=== PATIENT | female | born 1980 ===

== ENCOUNTER 2020-04-29 15:52 | Outpatient (REF) | payer OTHER, SELFPAY | END 2020-04-29 15:53 | disposition home or self-care (01) | LOC: HO.LAB 15:52 | PROVIDERS: Visit Provider Internal Medicine | DX: Z20.822 Contact with and (suspected) exposure to COVID-19 (principal) | CPT/HCPCS: 36415; C9803; U0003; U0005 ==

== ENCOUNTER 2022-09-24 10:58 | Outpatient (AMB) | payer OTHER, SELFPAY ==
--- NOTE | 2022-09-24 10:59 | MHC.OFFVIS ---
Intake Vital Signs 09/24/22 11:03 Height 5 ft 6 in Weight 158 lb BMI 25.5 BP 154/88 H Blood Pressure Location Rt brachial Position Sitting Intake Visit Reasons: New patient Vaginal bleeding Intake Note: Pt c/o: postcordial bleeding new partner 2022 [employer] Blower Required: No Accompanied by: Self / Same As Patient Allergies Penicillins [PENICILLINS] Allergy (Intermediate, Verified 09/24/22 11:05) HIVES tramadol [TRAMADOL] Allergy (Intermediate, Unverified 09/24/22 11:05) ITCHING penicillin V Allergy (Unknown, Verified 09/24/22 11:05) Hives oxycodone [From PERCOCET] Adverse Reaction (Severe, Unverified 09/24/22 11:05) SEVERE NAUSEA+VOMITING Medication List - Last Reconciled 09/24/22 by Radha Reyna CNM No Known Home Meds Is last menstrual period known: Yes Last menstrual period: 09/08/22 HPI New patient Vaginal bleeding HPI Details Patient is scheduled today as a new patient for postcoital bleeding. 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 She has a new partner since beginning of the year and twice she has had post coital bleeding they use condoms however she would like to be checked for STIs just to be sure she does recall having an abnormal Pap smear a couple of times per perhaps in 2015 but repeat Paps were within normal limits. She did not need procedures or colposcopies to her memory. She had all vaginal births and no problems with them and she had her tubes tied by Dr. Jara after the of her last daughter. 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 The bleeding concerned her because it was kind of significant and sudden but it stopped is very soon after the last time was last week on Tuesday her periods are regular and they last maybe 3-4 days and the last period came on September 08 and she has no problems with her periods. She has had a history of herpes but only 1 outbreak in her life and it was when she was and it was discovered during the a visit. It turns out her partner had it and shared it but she never had an outbreak after that. [facility] Surgical History (Updated 04/23/20 @ 08:23 by ALEXANDR Nam) History of extraction of renal calculus History of tubal ligation Family History (Updated 04/23/20 @ 08:44 by ALEXANDR Nam) Father Hypertension Diabetes Mother Prediabetes Sister Cirrhosis of liver Maternal Grandmother Diabetes Arthritis Brother No problems noted. Son In good health Daughter In good health Female Reproductive History Menstrual Date of last menstrual period: 09/08/22 Total pregnancies: 5 Number of Living Children: 3 Ab spontaneous: 2 Physical Exam Vital Signs: Last Vital Signs BP 154/88 H 09/24/22 11:03 BMI result Body Mass Index 25.5 Other: Evidence of some old blood with mucus in vagina but no fresh blood seen and her cervix is not particularly friable very tiny scant amount of blood elicited with Cytobrush in internal os which is slightly gaping consistent with multiparity. No evidence of cervical polyp visible and no abnormal discharge noted at all cervix is otherwise clear and mucosa healthy and mucus clear except for the old blood. Cervix is parous mobile nontender uterus small midposition nontender good tone with Kegel adnexa nontender External Female Exam: normal external appearance Speculum Exam - Vagina: normal appearance of the vagina and normal vaginal discharge Speculum Exam - Cervix: normal appearance of the cervix Bimanual exam- vagina & uterus: normal bimanual exam, uterine size normal, consistency normal, uterine mobility normal, uterine shape normal and non-tender Bimanual Exam- Adnexa, other: normal adnexae, no masses and No adnexal tenderness Assessment & Plan Assessment & Plan (1) Postcoital bleeding: Code(s): N93.0 - Postcoital and contact bleeding (2) Screen for sexually transmitted diseases: Code(s): Z11.3 - Encounter for screening for infections with a predominantly sexual mode of transmission Plan discussed screening for STDs which she is happy to do and testing was done during this exam I also did her Pap smear today as it has been a few years since her last 1 and she did recall some abnormals though none significant enough to require major intervention as far she can recall. I am also ordering a pelvic ultrasound to assess for any anomalies that could explain the post coital bleeding in particular I am curious whether not there is a cervical polyp that could have become disrupted during intercourse. She has a scheduled field automobile adjuster annual exam in October so we will review the results of all at that visit. Orders: Orders Bacterial Vaginosis Panel Today N93.0 - Postcoital and contact bleeding, Z20.2 - Contact with and (suspected) exposure to infections with a predominantly sexual mode of transmission CT NG by PCR Today N93.0 - Postcoital and contact bleeding, Z20.2 - Contact with and (suspected) exposure to infections with a predominantly sexual mode of transmission US pelvic and transvaginal Today N93.0 - Postcoital and contact bleeding Hepatitis B Surface Antigen Today N93.0 - Postcoital and contact bleeding Hepatitis C Antibody Today N93.0 - Postcoital and contact bleeding HIV Ab/Ag Today N93.0 - Postcoital and contact bleeding Syphilis Screen Today N93.0 - Postcoital and contact bleeding Pap Smear Today Z01.419 - Encounter for gynecological examination (general) (routine) without abnormal findings Coding Level of Care Code New Pt Level 3 (86619) Diagnoses Postcoital bleeding N93.0 Screen for sexually transmitted diseases Z11.3
[2022-09-24 11:03] VITALS: BP 154/88; BMI 25.5
== END 2022-09-24 12:17 | disposition home or self-care (01) ==
LOC: HO.HWS 10:58
PROVIDERS: Visit Provider Advanced Practice Midwife
DX: N93.0 Postcoital and contact bleeding (principal); Z11.3 Encounter for screening for infections with a predominantly sexual mode of transmission
CPT/HCPCS: 99203

== ENCOUNTER 2022-09-24 10:58 | Outpatient (REF) | payer OTHER, SELFPAY ==
[2022-09-25 04:25] LABS: CT PCR NOT DETECTED (Not Detect.); NG PCR NOT DETECTED (Not Detect.)
[2022-09-25 12:50] LABS: BV Int Neg Control Negative (Negative); BV Int Pos Control Positive (Positive)
[2022-10-02 03:14] LABS: HPV mRNA E6/E7 rflx Not Detected (Not Detected)
== END 2022-09-24 10:59 | disposition home or self-care (01) ==
LOC: HO.LNP 10:58
PROVIDERS: Visit Provider Advanced Practice Midwife
DX: Z01.419 Encounter for gynecological examination (general) (routine) without abnormal findings (principal); N93.0 Postcoital and contact bleeding; Z20.2 Contact with and (suspected) exposure to infections with a predominantly sexual mode of transmission
CPT/HCPCS: 0353U; 87480; 87510; 87624; 87660; 88142; 99202

== ENCOUNTER 2022-11-05 09:22 | Outpatient (AMB) | payer OTHER, SELFPAY ==
[2022-11-05 09:31] VITALS: BP 118/74; BMI 28.6
--- NOTE | 2022-11-05 09:31 | A.OFFVIS_ITS ---
Intake Vital Signs 11/05/22 09:31 Height 5 ft 6 in Weight 177 lb BMI 28.6 BP 118/74 Intake Visit Reasons: Annual/follow up Intake Note: no concerns The patient agreed to use of a medical education coordinator during this encounter. Scribed for LEVI Martins by Caro Philippe medical education coordinator, on 11/05/2022 at 9:45 am EST Munitions Worker Required: No Information Interpreted: non-clinical & clinical Beater Engineer: Beater Engineer Present (Linette Hudson ALEXANDR) Accompanied by: Self / Same As Patient Allergies Penicillins [PENICILLINS] Allergy (Intermediate, Verified 11/05/22 09:32) HIVES tramadol [TRAMADOL] Allergy (Intermediate, Unverified 11/05/22 09:32) ITCHING penicillin V Allergy (Unknown, Verified 11/05/22 09:32) Hives oxycodone [From PERCOCET] Adverse Reaction (Severe, Unverified 11/05/22 09:32) SEVERE NAUSEA+VOMITING Is last menstrual period known: Yes Last menstrual period: 10/06/22 HPI HPI Comments History of Present Illness Details She is a premenopausal woman presenting for annual exam. She is concerned about her weight gain. She attempts to eat healthy and stay active. Currently sexually active. She uses condoms for STD prevention. Hx of BTL for BC. Regular monthly periods. Hx of anemia in , does not have a PCP currently for routine blood work. Hx of post coital bleeding last month, resolved. Has not done US yet due to work schedule. Denies vaginal itching and irritation. STD screening offered; she declines, just done last month. Denies family hx of breast, colon and ovarian cancer. Last pap smear 2022. Not UTD on mammogram. [facility] Surgical History History of extraction of renal calculus History of tubal ligation Family History Father Hypertension Diabetes Mother Prediabetes Sister Cirrhosis of liver Maternal Grandmother Diabetes Arthritis Brother No problems noted. Son In good health Daughter In good health Paternal Aunt Breast cancer Social History Household Members: Children Housing: House Alcohol intake: current Alcohol intake frequency: holidays/special occasions only Patient Tobacco Use Status: Never used Tobacco Current occupational status: employed Current occupation: [employer] Sexual orientation: Straight/Heterosexual Gender identity: Female Female Reproductive History Menstrual Date of last menstrual period: 10/06/22 control method: permanent sterilization Total pregnancies: 5 Full term: 3 Number of Living Children: 3 Ab spontaneous: 2 Date of last pap smear: 09/27/22 Review of Systems Const All systems reviewed & are unremarkable except as noted in HPI and below Reports weight gain Physical Exam Vital Signs: Last Vital Signs BP 118/74 11/05/22 09:31 BMI result Body Mass Index 28.6 Const General: cooperative, healthy appearing, no acute distress, well developed and alert Orientation/consciousness: patient oriented x3 HEENT Head: Yes normal to inspection Eyes General: appearance normal, both eyes and all related structures Neck Neck: Yes normal visual inspection Thyroid: Thyroid normal Chest Chest palpation & inspection: normal inspection of the chest Breast/axilla inspection: normal inspection of the breasts (no puckering, dimpling, peau de orange, retraction, discharge, masses) Breast/axilla palpation: normal palpation of the breasts Resp Effort & Inspection: normal respiratory effort GI Inspection: Yes normal to inspection Palpation (GI): Soft to palpation Rectal Exam - Female: deferred General: Yes bladder normal to palpation External Female Exam: normal external appearance and normal appearance of the urethra Speculum Exam - Vagina: normal appearance of the vagina, normal palpation and normal vaginal discharge Speculum Exam - Cervix: normal appearance of the cervix and normal palpation Bimanual exam- vagina & uterus: normal bimanual exam, normal palpation, uterine size normal (retroverted), bladder normal to palpation and normal palpation Bimanual Exam- Adnexa, other: normal adnexae and no masses Skin General skin exam: no rashes or lesions noted Neuro General: patient oriented x3 Cognition (Neuro): normal cognition Extrem General: Yes normal to inspection Psych Attitude: cooperative Thought process: Normal thought process present Assessment & Plan Assessment & Plan (1) Encounter for well woman exam: Code(s): Z01.419 - Encounter for gynecological examination (general) (routine) without abnormal findings Plan: Discussed: Current recommendations for pap smears per ASCCP guidelines. Breast awareness and periodic self breast exams. Encouraged yearly mammograms. Maintaining a healthy lifestyle including a well balanced diet, recommended Mediterrenean diet and routine exercise. Recommended completing pelvic US. Encouraged condom use for STD prevention. Encouraged patient to sign up for patient portal. Recommended finding PCP. All of her questions and concerns were addressed to the best of my ability. RTO in one year for AG. (2) Weight gain: Code(s): R63.5 - Abnormal weight gain Plan: Labs ordered. RTO for test results (3) History of anemia: Code(s): Z86.2 - Personal history of diseases of the blood and blood-forming organs and certain disorders involving the immune mechanism Orders: Orders Thyroid Stimulating Hormone Today R63.5 - Abnormal weight gain Complete Blood Count no Diff Today Z86.2 - Personal history of diseases of the blood and blood-forming organs and certain disorders involving the immune mechanism Coding Level of Care Code Est Pt Prev Care 40-64y(60848) Diagnoses Encounter for well woman exam Z01.419 Weight gain R63.5 History of anemia Z86.2
== END 2022-11-05 10:05 | disposition home or self-care (01) ==
PROVIDERS: Visit Provider Advanced Practice Midwife
DX: Z01.419 Encounter for gynecological examination (general) (routine) without abnormal findings (principal); R63.5 Abnormal weight gain; Z86.2 Personal history of diseases of the blood and blood-forming organs and certain disorders involving the immune mechanism
CPT/HCPCS: 99396

== ENCOUNTER → 2022-11-05 09:22 | Outpatient (BNVA) | payer OTHER, SELFPAY | PROVIDERS: Visit Provider Advanced Practice Midwife ==

== ENCOUNTER 2022-12-16 14:54 | Outpatient (REF) | payer OTHER, SELFPAY ==
[2022-12-17 14:11] LABS: BV Int Neg Control Negative (Negative); BV Int Pos Control Positive (Positive)
[2022-12-17 16:41] LABS: CT PCR NOT DETECTED (Not Detect.); NG PCR NOT DETECTED (Not Detect.)
== END 2022-12-16 14:55 | disposition home or self-care (01) ==
LOC: HO.LNP 14:54
PROVIDERS: Visit Provider Advanced Practice Midwife
DX: Z20.2 Contact with and (suspected) exposure to infections with a predominantly sexual mode of transmission (principal)
CPT/HCPCS: 0353U; 87480; 87510; 87660; 99212

== ENCOUNTER 2022-12-16 14:54 | Outpatient (AMB) | payer OTHER, SELFPAY ==
--- NOTE | 2022-12-16 14:55 | MHC.OFFVIS ---
Intake Vital Signs 12/16/22 14:56 Height 5 ft 6 in Weight 174 lb BMI 28.1 BP 120/80 Intake Visit Reasons: STD check Intake Note: Would like full STD check Adult Caregiver Required: No Information Interpreted: non-clinical & clinical Induction Coordination Engineer: Induction Coordination Engineer Present (Leslie) Allergies Penicillins [PENICILLINS] Allergy (Intermediate, Verified 12/16/22 14:59) HIVES tramadol [TRAMADOL] Allergy (Intermediate, Verified 12/16/22 14:59) ITCHING penicillin V Allergy (Unknown, Verified 12/16/22 14:59) Hives oxycodone [From PERCOCET] Adverse Reaction (Severe, Verified 12/16/22 14:59) SEVERE NAUSEA+VOMITING Medication List - Last Reconciled 12/16/22 by Radha Reyna CNM No Known Home Meds Is last menstrual period known: Yes Last menstrual period: 12/07/22 Post menopausal: No HPI STD check HPI Details Patient is here to get an STD check she has been using condoms as well as having her tubes tied but a while back a condom broken it has been making her nervous ever since so she wants to get checked for everything she had had orders placed for STI blood work in September but she never got to go for them she also had spoken to the other CNM about getting her thyroid and blood count checked and she has not gotten those levels done yet either her children are 21 to age 5. States her last menstrual period started on December 07 and it was normal there shorter than they used to be ever since having her last child. Her previous menstrual period came on November 06. [facility] Surgical History History of extraction of renal calculus History of tubal ligation Family History Father Hypertension Diabetes Mother Prediabetes Sister Cirrhosis of liver Maternal Grandmother Diabetes Arthritis Brother No problems noted. Son In good health Daughter In good health Paternal Aunt Breast cancer Social History Household Members: Children Housing: House Alcohol intake: current Alcohol intake frequency: holidays/special occasions only Patient Tobacco Use Status: Never used Tobacco Current occupational status: employed Current occupation: [employer] Sexual orientation: Straight/Heterosexual Gender identity: Female Female Reproductive History Menstrual Age of Menarche: 11 Duration of menses: 3-5 days Date of last menstrual period: 12/07/22 control method: other (tubal ligation) Total pregnancies: 5 Full term: 3 Number of Living Children: 3 Ab spontaneous: 2 Date of last pap smear: 09/27/22 (negative) History of abnormal pap smear: Yes Physical Exam Vital Signs: Last Vital Signs BP 120/80 12/16/22 14:56 BMI result Body Mass Index 28.1 Other: Speculum exam within normal limits vagina is pink and moist cervix does have a somewhat spinbarkight quality to it multiparous cervix. External Female Exam: normal external appearance and normal appearance of the urethra Speculum Exam - Vagina: normal appearance of the vagina and normal vaginal discharge Speculum Exam - Cervix: normal appearance of the cervix and Cervical os closed Results Reviewed Results Reviewed: Pap was normal Assessment & Plan Assessment & Plan (1) Screen for sexually transmitted diseases: Code(s): Z11.3 - Encounter for screening for infections with a predominantly sexual mode of transmission Plan Testing done for gonorrhea chlamydia trichomoniasis Gardnerella and Ewa. She would like to get the blood work done the orders are still active since September so she can go get those done today. Additionally previous orders are still in there she had been having some discomfort when she was having sex but that stopped so both ERICKA is a myself and Janis had ordered pelvic ultrasounds for her but she says the pain has gone away now and she does not experience it anymore so she may choose not to get the ultrasound done whenever they called her to schedule it she could not leave work anyway. So I will leave it up to her as to whether not she desires to pursue having an ultrasound if she does she will need follow-up. Recommended tracking whether not the discomfort that she has is related to symptoms of ovulation that she is starting to become more aware of. Education done about symptoms of ovulation which could be present currently. Orders: Orders Bacterial Vaginosis Panel Today Z20.2 - Contact with and (suspected) exposure to infections with a predominantly sexual mode of transmission CT NG by PCR Today Z20.2 - Contact with and (suspected) exposure to infections with a predominantly sexual mode of transmission Coding Level of Care Code Est Pt Level 3 (44468) Diagnoses Screen for sexually transmitted diseases Z11.3
[2022-12-16 14:56] VITALS: BP 120/80; BMI 28.1
== END 2022-12-16 15:19 | disposition home or self-care (01) ==
LOC: HO.HWSM 14:54
PROVIDERS: Visit Provider Advanced Practice Midwife
DX: Z11.3 Encounter for screening for infections with a predominantly sexual mode of transmission (principal)
CPT/HCPCS: 99213

== ENCOUNTER 2022-12-28 13:15 | Outpatient (AMB) | payer OTHER, SELFPAY ==
--- NOTE | 2022-12-28 15:04 | AM.OFFWIN_ITS ---
Intake Vital Signs 12/28/22 15:06 Height 5 ft 6 in Weight 179 lb 2 oz BMI 28.9 BP 130/78 Blood Pressure Location Lt brachial Position Sitting Pulse 74 Pulse Source Pulse Oximeter Temp 98.5 F Temp Source Oral Pulse Oximetry (%) 97 Oxygen Delivery Method Room Air Intake Visit Reasons: EP, left eye redness/discharge ([phone]) Intake Note: Patient is here today for possible pink eye. Pt states started yesterday and is also itchy. Patient Tobacco Use Status: Never used Tobacco Allergies Penicillins [PENICILLINS] Allergy (Intermediate, Verified 12/28/22 15:36) HIVES tramadol [TRAMADOL] Allergy (Intermediate, Verified 12/28/22 15:36) ITCHING penicillin V Allergy (Unknown, Verified 12/28/22 15:36) Hives oxycodone [From PERCOCET] Adverse Reaction (Severe, Verified 12/28/22 15:36) SEVERE NAUSEA+VOMITING Medication List - Last Reconciled 12/28/22 by Errol Fay MD erythromycin 0.5 inches ophthalmic (eye) TID Do you need a note to return to daycare/school/sports/work: No HPI EP, left eye redness/discharge ([phone]) HPI Details 42-year-old female presents to the [facility] for a sick visit. Patient has redness in her left eye. She had difficulty opening her eye this morning. Does not wear contact lenses. Her young son is suffering from the croup. [facility] Surgical History History of extraction of renal calculus History of tubal ligation Family History Father Hypertension Diabetes Mother Prediabetes Sister Cirrhosis of liver Maternal Grandmother Diabetes Arthritis Brother No problems noted. Son In good health Daughter In good health Paternal Aunt Breast cancer Social History Household Members: Children Housing: House Alcohol intake: current Alcohol intake frequency: holidays/special occasions only Patient Tobacco Use Status: Never used Tobacco Current occupational status: employed Current occupation: [employer] Sexual orientation: Straight/Heterosexual Gender identity: Female Female Reproductive History Menstrual Age of Menarche: 11 Physical Exam Vital Signs: Last Vital Signs Temp 98.5 F 12/28/22 15:06 Pulse 74 12/28/22 15:06 BP 130/78 12/28/22 15:06 Pulse Ox 97 12/28/22 15:06 Oxygen Delivery Method Room Air 12/28/22 15:06 BMI result Body Mass Index 28.9 Eyes Other: Left eye: Bulbar conjunctiva is congested. Tarsal conjunctiva is congested. Corneas clear. No digital tenderness. Assessment & Plan Assessment & Plan (1) Conjunctivitis: Code(s): H10.9 - Unspecified conjunctivitis Plan: Erythromycin ointment called in. If symptoms do not improve to follow-up here. Medications: New erythromycin 0.5 inches ophthalmic (eye) TID 1 g 0RF Coding Level of Care Code Est Pt Level 3 (91876) Diagnoses Conjunctivitis H10.9
[2022-12-28 15:06] VITALS: BP 130/78; PULSE 74; TEMP 36.9; O2SAT 97; BMI 28.9
== END 2022-12-28 15:48 | disposition home or self-care (01) ==
PROVIDERS: Visit Provider Internal Medicine
DX: H10.9 Unspecified conjunctivitis (principal)
CPT/HCPCS: 99213

== ENCOUNTER 2023-04-20 13:27 | Emergency (ER) | payer MEDICAID, SELFPAY ==
--- NOTE | 2023-04-20 13:35 | ED_ITS ---
HPI - General Adult General Chief complaint: General Medical Stated complaint: Sore Throat Time Seen by Provider: 04/20/23 14:12 Source: patient Mode of arrival: ambulatory Limitations: no limitations History of Present Illness HPI narrative: Patient is a 42 year old assigned female at with no reported medical history presenting to the emergency department today with a sore throat. Patient states that over the last 2 days she has had a sore throat. Patient denies any dizziness, lightheadedness, abdominal pain, nausea, vomiting, fever, chills, blurry vision, double vision, loss of vision, chest pain, difficulty breathing, shortness of breath, back pain, night sweats, pain with urination, increased urinary frequency, increased urinary urgency, blood in her urine or stool, syncope or a near syncopal episode, recent trauma or falls, bowel incontinence, bladder incontinence, bowel retention, bladder retention, or any other complaints at this time. Onset (ago): day(s) (2) Severity: mild Severity scale (1-10): 2 Quality: aching and dull Pain Consistency: constant Relieving factors: none Exacerbating factors: none Associated symptoms: denies other symptoms Treatments prior to arrival: none Related Data Previous Rx's Medication Instructions Recorded erythromycin 5 mg/gram (0.5 %) eye 0.5 inch ophthalmic (eye) TID #1 g 12/28/22 ointment cephalexin 500 mg capsule 500 mg PO Q6H 7 days #28 caps 04/20/23 Allergies Allergy/AdvReac Type Severity Reaction Status Date / Time Penicillins [PENICILLINS] Allergy Intermediate HIVES Verified 04/20/23 13:36 tramadol [TRAMADOL] Allergy Intermediate ITCHING Verified 04/20/23 13:36 penicillin V Allergy Unknown Hives Verified 04/20/23 13:36 oxycodone [From PERCOCET] AdvReac Severe SEVERE Verified 04/20/23 13:36 NAUSEA+VOMITING Review of Systems Constitutional: Constitutional: Reports no additional constitutional complaints, Denies chills, Denies fever(s) and Denies night sweats Eyes: Eyes: Reports no additional eye complaints, Denies blurry vision, Denies change in vision, Denies diplopia, Denies eye discharge, Denies loss of vision and Denies eye pain ENT: Denies dizziness and Reports sore throat Cardiovascular: Cardiovascular: Reports no additional cardiovascular complaints, Denies chest pain, Denies lightheadedness, Denies Loss of Consciousness and Denies dyspnea Respiratory: Respiratory: Reports no additional respiratory complaints and Denies dyspnea Gastrointestinal: Gastrointestinal: Reports no additional gastrointestinal complaints, Denies abdominal pain, Denies melena, Denies hematochezia, Denies change in bowel habits and Denies change in stool character Genitourinary: Genitourinary: Denies hematuria, Denies urinary frequency, Denies dysuria, Denies urinary incontinence, Denies urinary hesitancy and Denies urinary urgency Musculoskeletal: Musculoskeletal: Reports no additional musculoskeletal complaints, Denies numbness and Denies tingling Neurologic: Denies dizziness, Denies loss of vision, Denies numbness and Denies tingling Psychiatric: Psychiatric: Reports no additional psychiatric complaints Endocrine: Endocrine: Reports no additional endocrine complaints Hematologic/Lymphatic: Hematologic/Lymphatic: Reports no additional hematologic/lymphatic complaints Allergic/Immunologic: Allergic/Immunologic: Reports no additional allergic/immunologic complaints PMFSH Past Medical History Attestation statement: The following information was validated with the patient. Source: old records reviewed and nursing notes reviewed Surgical History History of extraction of renal calculus History of tubal ligation Family History Family History Father Hypertension Diabetes Mother Prediabetes Sister Cirrhosis of liver Maternal Grandmother Diabetes Arthritis Brother No problems noted. Son In good health Daughter In good health Paternal Aunt Breast cancer Social History Social History Household Members: Children Housing: House Alcohol intake: current Alcohol intake frequency: holidays/special occasions only Patient Tobacco Use Status: Never used Tobacco Advance Directives: No Advance Directives Information Provided: No Current occupational status: employed Current occupation: [employer] Sexual orientation: Straight/Heterosexual Gender identity: Female Physical Exam ED Vital Signs: Vital Signs - 24 hr 04/20/23 13:37 Temperature 97 F Pulse Rate 85 Respiratory Rate 18 Blood Pressure 145/79 H Pulse Oximetry 98 BMI result Body Mass Index 29.0 Const General: cooperative, no acute distress, alert and awake Nutritional Appearance: well nourished Orientation/consciousness: patient oriented x3 Limitations: no limitations HENMT Head: Yes normal to inspection and Yes atraumatic Ears: hearing grossly normal bilaterally and external ears normal General nose exam: Normal external nose present, no nasal discharge noted and no epistaxis Face and sinus: Yes normal facial exam, No abrasion and No laceration Mouth: Normal oral and palatal mucosa present, no drooling and no muffled voice Throat: Yes abnormal tonsil (bilateral erythema and exudates) Eyes General: appearance normal, both eyes and all related structures Periorbital: periorbital findings normal Eyelids: Yes eyelids normal Conjunctivae: conjunctivae normal Pupils: Equal, round and reactive pupils present EOM: EOMs intact bilaterally Neck Neck: Yes normal visual inspection, Yes full ROM and Yes no lymphadenopathy Chest Chest palpation & inspection: normal inspection of the chest Resp Effort & Inspection: normal respiratory effort and able to speak in complete sen tences GI Inspection: Yes normal to inspection Neuro General: patient oriented x3 and moves all extremities Cranial nerves: Yes Equal, round and reactive pupils present Cognition (Neuro): normal cognition Motor exam (neuro): 5/5 motor strength present throughout Sensory Exam: Normal double simultaneous stimulation for sensation Coordination: [id number] test normal Extrem General: Yes normal to inspection, Yes full ROM and Yes capillary refill normal Psych Appearance: grossly normal Mental Status: mental status grossly normal Affect: normal affect Attitude: cooperative Thought process: Normal thought process present Thought content: Normal thought content present Insight: Good insight present (Psych) Course Course Course Narrative: This is a rapid medical exam: Additional HPI, ROS, PE not included below will be deferred to primary provider. Patient is a 42-year-old female presenting to the ED with complaint of sore throat since Tuesday, white patches noted on tonsils. Denies fevers. Managing secretions. Took one dose of someone else's amoxicillin today which improved her symptoms. Plan: strep and viral swabs Medical Decision Making Medical Decision Making MDM Narrative: Patient is a 42 year old assigned female at with no reported medical history presenting to the emergency department today with a sore throat. Patient's physical exam was as noted in the physical exam portion of this note. Patient's COVID-19, RSV, Influenza, and Strep tests were all negative. Given the patient's current clinical presentation, will treat. I explained my physical exam findings as well as all test results to the patient. I answered all questions asked by the patient. I stressed the importance of the patient taking her medication as prescribed. I stressed the importance of the patient following up with her primary care provider. I stressed the importance of the patient returning to the emergency department immediately if her symptoms were to worsen or if she were to develop any dizziness, shortness of breath, difficulty breathing, chest pain, blurry vision, loss of vision, nausea, vomiting, abdominal pain, fever, chills, back pain, or any other complaints. Patient verbalized agreement and understanding with this treatment plan and discharge. Differential Diagnosis Differential Diagnoses: The differential diagnosis associated with the presentation includes Strep pharyngitis Pharyngitis COVID-19 Influenza RSV Admission/Observation Consideration of admission/observation: Escalation of care including admission/observation considered Patient would have been admitted to the hospital had her work up had any findings where hospital admission was appropriate and her clinical presentation warranted hospital admission. Lab Data MDM Lab Attestation statement: I reviewed the patient's lab results. My interpretation of these studies and their corresponding values is that they are grossly normal. Labs: Lab Results 04/20/23 Range/Units 13:56 Influenza Type A (PCR) NEGATIVE (Negative) Influenza Type B (PCR) NEGATIVE (Negative) RSV RNA Qual (PCR) NEGATIVE (Negative) SARS-CoV-2 RNA (RT-PCR) NEGATIVE (Negative) S. pyogenes GrpA CECILIO Negative (Negative) Prescription Management I considered prescription management with: Antibiotic (patient prescribed an antibiotic) Discharge Plan Discharge Clinical Impression: Pharyngitis Patient Disposition: Home, Self-Care Instructions: Pharyngitis (ED) Additional Instructions: Follow up with your primary care provider. Return to the emergency department immediately if your symptoms worsen or if you develop any dizziness, shortness of breath, difficulty breathing, chest pain, blurry vision, loss of vision, nausea, vomiting, abdominal pain, fever, chills, back pain, or any other complaints. Prescriptions: New cephalexin 500 mg capsule 500 mg PO Q6H 7 Days Qty: 28 0RF No Action erythromycin 5 mg/gram (0.5 %) ointment 0.5 inch ophthalmic (eye) TID Qty: 1 0RF Referrals: [facility] [[place] Group] (Call to establish and follow up with a primary care provider. If you already have a primary care provider, please follow up with them.) [facility] [Provider Group] (Call to establish and follow up with a primary care provider. If you already have a primary care provider, please follow up with them.) [facility] [Provider Group] (Call to establish and follow up with a primary care provider. If you already have a primary care provider, please follow up with them.) Stand Alone Forms: Work/School Release Interventions: ED Discharge Assessment Last Done: 04/20/23 15:26 Discharge Date/Time: 04/20/23 15:26 Print Language: Slovenian
[2023-04-20 13:37] VITALS: BP 145/79; PULSE 85; RESP 18; TEMP 36.1; O2SAT 98; BMI 29.0
[2023-04-20 14:13] LABS: IDNOW Serial# 08D9AD1C; Strep A Nucleic Acid Negative (Negative)
[2023-04-20 14:49] LABS: Influenza A PCR NEGATIVE (Negative); Influenza B PCR NEGATIVE (Negative); Resp Syncy Virus RNA Qual PCR NEGATIVE (Negative); SARS COV2 PCR INHOUSE NEGATIVE (Negative)
== END 2023-04-20 15:26 | disposition home or self-care (01) ==
PROVIDERS: Registered Nurse Emergency; Emergency Provider Emergency Medicine
DX: J02.9 Acute pharyngitis, unspecified (principal); Z11.52 Encounter for screening for COVID-19; Z20.828 Contact with and (suspected) exposure to other viral communicable diseases; Z88.0 Allergy status to penicillin; Z88.5 Allergy status to narcotic agent
CPT/HCPCS: 0241U; 87651; 99283

== ENCOUNTER 2023-04-27 11:44 | Outpatient (REF) | payer OTHER, SELFPAY ==
--- NOTE | ~2023-04-27 | MM_ITS ---
EXAMINATION: MM SCREENING DIGITAL BREAST TOMOSYNTHESIS, BILATERAL CLINICAL INFORMATION: Screening. Asymptomatic. COMPARISON: Mammography: This is a baseline mammogram. TECHNIQUE: Digital breast tomosynthesis is performed in both the craniocaudal and mediolateral oblique views along with computer-aided detection (CAD). Synthesized 2D images are generated from the tomosynthesis. FINDINGS: The breasts are heterogeneously dense, which may obscure small masses (ACR BI-RADS breast composition Category c). There are no significant masses, abnormal calcifications, or other abnormalities. MM/MM tomosynthesis screening BI IMPRESSION: No mammographic evidence of malignancy. ASSESSMENT: BI-RADS BI-RADS 1 - Negative RECOMMENDATION: Routine annual mammography screening. 1 year F/U This examination should not preclude the clinical evaluation of a suspicious palpable abnormality. This patient's information was entered into a reminder system with a target due date for their next mammogram.
== END 2023-04-27 11:45 | disposition home or self-care (01) ==
LOC: HO.MAMMO 11:44
PROVIDERS: Visit Provider Advanced Practice Midwife
DX: Z12.31 Encounter for screening mammogram for malignant neoplasm of breast (principal)
CPT/HCPCS: 77063; 77067

== ENCOUNTER → 2023-04-27 11:45 | Outpatient (BNV) | payer OTHER, MEDICAID, SELFPAY | PROVIDERS: Visit Provider Radiology Diagnostic Radiology | DX: Z12.31 Encounter for screening mammogram for malignant neoplasm of breast (principal) | CPT/HCPCS: 77063; 77067 ==

== ENCOUNTER 2024-04-30 15:22 | Outpatient (REF) | payer OTHER, SELFPAY ==
--- OUTSIDE RECORDS SUMMARY | 2024-04-30 17:34 | XMS_ITS | Data Portability ---
Author Organization WALESKA hwitney [address] Address [address] [place] [address] Assessment No assessment recorded. Plan of Treatment Reminders Order Date Submit Date Provider Last Modified By Organization Details Last Modified Time Details Appointments None recorded. Lab rapid SARS CoV 2 Ag, QL IA, [facility], [address] [place] [address], [id number], 12:06:05 [facility], [address] [place] [address], [phone], 12:06:05 Referral None recorded. Procedures None recorded. Surgeries None recorded. Imaging None recorded. Medication Orders None recorded. Patient TargetsNo targets recorded. Patient Instructions Encounter Date Encounter Id Patient Instructions Last Modified By Organization Details Last Modified Time 02/18/2022 [id number] cough: care [facility] Not available 02/18/2022 12:06:05 Reason for Referral None Reported. Results Created Date Observation Date Name Description Value Unit Range Abnormal Flag Note LastModifiedBy Organization Detail LastModifiedTime 02/19/2002/18/2022 rapid flu (A+B) Unknown Analyte Normal = Negati ve Not Available [address] [address] [place] [address], [phone], 02/18/2022 11:20:01 02/19/20 22 02/18/2022 rapid flu (A+B) Unknown Analyte negati ve Not Available [facility] [address], [phone], 02/18/2022 11:20:01 02/19/20 22 02/18/2022 rapid flu (A+B) Unknown Analyte Normal = Negati ve Not Available [facility] [address], [address], 02/18/2022 11:20:01 02/19/20 22 02/18/2022 rapid flu (A+B) Unknown Analyte negati ve Not Available [facility] [address], [address], 02/18/2022 11:20:01 02/19/20 22 02/18/2022 rapid SARS CoV 2 Ag, QL IA, respi rator y speci men Unknown Analyte Normal =Negat kayli Not Available [address], [address], 02/18/2022 11:19:52 02/19/20 22 02/18/2022 rapid SARS CoV 2 Ag, QL IA, respi rator y speci men Unknown Analyte negati ve Not Available [address] [place] [address], [phone], 02/18/2022 11:19:52 Result Notes None recorded. Problems No Known Problems Procedures Surgical History Date Name Laterality Status Provider Name and Address Organization Details Recorded Time 8 removal of stent completed BABATUNDE DENNIS [place] - [facility] 02/18/2022 11:19:36 Imaging Results None recorded. Procedure Notes None recorded. Medical Equipment None Reported. Allergies Allergen ID Allergen Name Allergen Category Reaction Reaction Severity Criticality Documentation Date Start Date Code Code System Note Provider Name and Address Organization Details Recorded Time 38636 Product containin g penicilli n (product) medicatio n hives Not available Not available 02/18/20[address], [place] - [facility] 2 11:18:08 58081 acetamino phen / oxycodone medicatio n vomiting Not available Not available 02/18/20[address], [place] - [facility] 2 11:18:16 Medications Not known to be on any medication Vitals Date Recorded Body height Body mass index (BMI) Body weight Pain severity - 0-10 verbal numeric rating [Score] - Reported Oxygen saturation Oxygen saturation in Arterial blood by Pulse oximetry Heart rate Respiratory rate Body temperature Systolic blood pressure Diastolic blood pressure Provider Name and Address Organization Details Last Updated DateTime 2 167.64 cm 29.9 kg/m2 58742.5 9 g 0 99 % 99 % 92 /min 18 /min 97.4 [degF] 141 mm[Hg] 81 mm[Hg] BABATUNDE DENNIS PA - [facility] 2 11:28:07 Social History Question Answer Notes LastModified by Activehours[employer]Picodeon ion Details LastModified Time Tobacco Smoking Status Never Smoker BABATUNDE st, [place] - [facility] 02/18/2022 11:19:03 What Is Your Level Of Alcohol Consumption? None Information not available 02/18/2022 Which Illicit Or Recreational Drugs Have You Used? Marijuana Ocassionally Information not available 02/18/2022 Do You Use Any Illicit Or Recreational Drugs? Yes Information not available 02/18/2022 Have You Recently Traveled Abroad? No Information not available 02/18/2022 Do You Or Have You Ever Used Any Other Forms Of Tobacco Or Nicotine? No Information not available 02/18/2022 Sex: Unknown Functional Status None recorded. Mental Status None recorded. Family History Relationship Description Onset Age of this Age Resolved Age Notes LastModified by Organization Details LastModified Time Father Diabetes mellitus Not available 2021 11:18:42 Medical History No medical history recorded. Gynecological HistoryNo gynecological history recorded. Obstetrics History GPAL:G 0 P 0 0 0 0 Immunizations Vaccine Type Date Status Note Provider Mignon Address Organization Details Recorded Time DTaP 09/18/2011 completed WALESKA Guzman - [facility] 02/18/2022 11:17:45 Tdap 11/15/2017 completed WALESKA Guzman [facility] 02/18/2022 11:17:45 Past Encounters Encounter ID Performer Location Encounter Start Date Encounter Closed Date Diagnosis/Indication Diagnosis SNOMED-CT Code Diagnosis ICD10 Code Diagnosis Note [id number] [facility] LAROSE [address] [address] 02/18/2022 08:49:21 02/18/2022 12:12:53 Acute upper respiratory infection 77689850 J06.9 Health Concerns Section Related Observation LastModified by Organization Detai ls LastModified Time None Recorded Concern Status LastModified by Organization Details LastModified Time None Recorded Advance Directives Directive None Recorded Payers Encounter Date Sequence Insurance Name Policy Number Policy Davidson Covered Member ID Davidson Member ID Guarantor Name 02/18/2022 1 [facility]MEDICAID HMO) [id number] Blessing Dexter [id number] Blessing Dexter Notes Date Note Type Note Provider Name and Address Organization Details Recorded Time 02/18/2022 text/html x 4 days cough with chest discomfort, had fever with body aches, intermittent abdominal pains. Abd pain is not severe and resolving. requesting rapid covid and flu to return to work. theraflu helped WALESKA RENTERIA [facility] [place], [address], [place] - [facility] 02/18/2022 12:11:27 OBGyn Episode No OBEpisode recorded.
== END 2024-04-30 15:23 | disposition home or self-care (01) ==
LOC: HO.MAMMO 15:22
PROVIDERS: PCP Internal Medicine; Visit Provider Internal Medicine
DX: Z12.31 Encounter for screening mammogram for malignant neoplasm of breast (principal)
CPT/HCPCS: 77063; 77067

== ENCOUNTER → 2024-04-30 15:30 | Outpatient (BNV) | payer OTHER, SELFPAY | PROVIDERS: PCP Internal Medicine; Visit Provider Internal Medicine | DX: Z12.31 Encounter for screening mammogram for malignant neoplasm of breast (principal) | CPT/HCPCS: 77063; 77067 ==